=== PATIENT | female | born 1970 | race Caucasian/White ===

== ENCOUNTER 2017-01-14 06:18 | Observation (INO) | payer OTHER ==
--- NOTE | 2017-01-12 12:42 | Anesthesia Consultation ---
Anesthesia Consult and Med Hx Date of service: 01/12/17 - Airway Anesthetic Teeth Evaluation: Good ROM Head & Neck: Adequate Mental/Hyoid Distance: Inadequate Mallampati Class: Class II Intubation Access Assessment: Probably Good - Pulmonary Exam CTA: Yes (clear blbs) - Cardiac Exam Cardiac Exam: RRR - Pre-Operative Health Status ASA Pre-Surgery Classification: ASA2 Proposed Anesthetic Plan: General - Cardiovascular System Hx Hypertension: Yes - Central Nervous System Hx Neuromuscular Disorder: Yes (OA)
[2017-01-12 12:44] LABS: Basophils % (Auto) 1.1 % (0.0-1.8); Hemoglobin 12.1 gm/dl (10.1-14.3); Mean Corpuscular HGB Conc 33 % (30-34); Mean Corpuscular Hemoglobin 29 pg (28-32); Mean Corpuscular Volume 87 fl (79-97); Platelet Count 316 K/mm3 (140-440); Red Blood Count 4.25 M/mm3 (3.65-5.03); Red Cell Distribution Width 13.8 % (13.2-15.2); White Blood Count 5.8 K/mm3 (4.5-11.0)
[2017-01-12 12:57] LABS: Anion Gap 15 mmol/L; BUN/Creatinine Ratio 26.66; Blood Urea Nitrogen 16 mg/dL (7-17); Calcium 9.4 mg/dL (8.4-10.2); Carbon Dioxide 28 mmol/L (22-30); Chloride 101.6 mmol/L (98-107); Glucose 108 mg/dL (65-100); Potassium 3.6 mmol/L (3.6-5.0); Sodium 141 mmol/L (137-145)
--- NOTE | 2017-01-13 09:19 | Admit Criteria Form ---
Admission Criteria Documentation: AMBULATORY SURGERY EXCEPTION CRITERIA Ambulatory Surgery Exception Criteria ( Place 'X' for any and all applicable criteria): Surgery or procedure performed on ambulatory basis may require inpatient stay for[A] ANY ONE of the following(1)(2)(3)(4)(5)(6)(7)(8)(9): [X] I. A preoperative situation, condition, or finding that warrants inpatient stay as indicated by ANY ONE of the following: [] a) Inpatient care needed because of severity of a disease or condition rather than the surgery (eg, severe cardiac or respiratory disease, severe infection) (15) (16 ) (17) (18) [] b) Emergent procedure (eg, angioplasty for acute ischemia)(19) [X] c) Complex surgical approach or situation as indicated by ANY ONE of the following(3): [] i) Open approach needed instead of usual endoscopic, transcatheter, or other less invasive procedure [] ii) Difficult approach because of previous operation [] iii) Airway monitoring required after open neck procedures(20)(21) [X] iv) Large mass requiring unusually extensive dissection [] v) Additional complicating feature requiring inpatient care (eg, drain management)(22(23): [] d) Major surgery in a pt with high anesthetic risk as indicated by ANY ONE of the following (2)(3)(5)(7)(8): [] i) ASA risk class III or higher (severe systemic disease impairing function) [D] [] ii) Advanced age (eg, older than 85 years)(14)(24) [] iii) Symptomatic heart failure(25) [] iv) Symptomatic asthma or COPD(8)(21) [] v) Morbid obesity with hemodynamic or respiratory problems(20)( 21)(26)(27) [] vi) Obstructive sleep apnea(20)(21) [] vii) Former premature infants who are younger than 60 weeks [] viii) High risk for severe postoperative abnormalities (eg, severe postoperative hypocalcemia after parathyroidectomy for severe hyperparathyroidism)(27)( 28) [] ix) Unstable angina(25) [] e) Drug-related risk requiring inpatient stay as indicated by ANY ONE of the following(5)(10)(14)(32)(33) [] i) Procedure requires discontinuing drugs or other therapy (eg , antiarrhythmic medication, antiseizure medication), which necessitates inpatient observation or treatment.(18)(31) [] ii) Major surgery and high risk drug use as indicated by ANY ONE of the following: [] 1) Active abuse of cocaine or similar drug [] 2) Monoamine oxidase inhibitor use [] 3) Other drug identified as posing risk [] f) Inadequate outpatient care situation as indicated by ANY ONE of the following(5)(10)(14)(32)(33) [] i) Patient lives remote from medical facility and procedure has urgent complication potential, and temporary nearby residence cannot be arranged [] ii) Patient will have postprocedure incapacitation and inadequate assistance at home, or alternative level of care cannot be arranged. [] iii) Patient will have long general anesthesia or procedure side effect resolution time, and competent person to stay with patient on first postoperative night at home or alternative level of care cannot be arranged. []iv) Other inadequate outpatient situation that cannot be handled by other means [] II. A perioperative event, condition, or finding that warrants inpatient stay as indicated by ANY ONE of the following (1)(2)(3): [] a) Inadequate physiologic recovery: cardiovascular, respiratory, or hemodynamic status not normal or near preoperative baseline(18) [] b) Hemodynamic instability [] c) Patient not alert with near normal or baseline mental status [] d) Temperature not normal or as expected and not appropriate for outpatient treatment of condition [] e) Ambulatory or appropriate activity level status not yet achieved post procedure [E](34)(35)(36) [] f) Operative site not appropriate (eg, unexpected or excessive drainage or bleeding) [] g) Postoperative effects not resolved or adequately managed (eg, significant pain or vomiting not appropriate for outpatient or next level of care)(10)(12) [] h) Complicating features requiring inpatient care as indicated by ANY ONE of the following(37): [] i) Severe complications of procedure (eg, bowel injury, airway compromise, vascular injury,severe hemorrhage) [] ii) Extensive (eg, dissection far beyond usual scope of procedure ) or prolonged (eg, 120 minutes beyond usual) surgery needed requiring inpatient postoperative care [] iii) Conversion to an open or complex procedure that requires inpatient care (eg, open vs laparoscopic cholecystectomy, abdominal vs vaginal hysterectomy)(38) [] iv) Comorbid condition or test result identified during or post procedure that requires inpatient care (7) [] v) Malignant hyperthermia(30) [] vi) Other complicating feature requiring inpatient care(22)(23) Inpatient stay may be needed until ALL of the following are present (1)(2)(3)(4) (5)(6)(10)(14)(33)(40): []a) Physiologic recovery: cardiovascular, respiratory, and hemodynamic status normal or near preoperative baseline []b) Hemodynamic stability []c) Patient alert, with near normal or baseline mental status []d) Temperature appropriate: patient afebrile or temperature appropriate for outpt treatment of condition []e) Activity level appropriate: ambulatory or appropriate activity level post procedure []f) Operative site appropriate as indicated by ALL of the following: []i) Site dry or with expected drainage []ii) Any blood noted is as expected for procedure. []g) Postoperative effects resolved or managed as indicated by ALL of the following: []i) Pain management appropriate for outpatient (or next level of) care(10) []ii) Minimal nausea and vomiting: if present, successfully treated with oral medication(12) []iii) Headache, dizziness, or drowsiness (if present) are mild. []h) Voiding status acceptable as indicated by ANY ONE of the following: []i) Voiding spontaneously []ii) No voiding but instructions given for follow-up in 6 to 8 hours []iii) Urinary catheter in place, and instructions given for follow-up []i) Complicating features requiring inpatient care manageable at a lower level of care(37) []j) Comorbid conditions manageable at a lower level of care(37) The original [employer] content created by [employer] has been revised. The portions of the content which have been revised are identified through the use of italic text or in bold, and [facility] [employer] has neither reviewed nor approved the modified material. All other unmodified content is copyright [employer]. Please see references footnoted in the original [employer] edition 2016 Admission Criteria Met: Yes
[~2017-01-14 06:18] MED LIST: DILAUDID IV PRN; DIPRIVAN 10 MG/ML IV ONE; NACL 0.9% 1000 ML 1,000 ML IV SCH; NEURONTIN PO NR; PEPCID PO NR; SUBLIMAZE IV NR; SUBLIMAZE IV PRN; TRANSDERM-SCOP TD NR; VERSED IV NR; ZOFRAN IV PRN
[2017-01-14] MEDS ORDERED: NACL BACTERIOSTATIC INFILTRATI ONE (06:35)
[2017-01-14] MEDS ORDERED: ZEMURON IV ONE (07:21)
[2017-01-14] MEDS ORDERED: XYLOCAINE MPF 2% ONE (07:21)
[2017-01-14] MEDS ORDERED: DIPRIVAN 10 MG/ML IV ONE (07:24)
[2017-01-14] MEDS ORDERED: DILAUDID ONE (07:25)
[2017-01-14] MEDS ORDERED: MARCAINE-EPI 0.5%-1:200,000 INFILTRATI ONE (07:27)
[2017-01-14] MEDS ORDERED: DECADRON ONE (07:28)
[2017-01-14] MEDS ORDERED: CLONIDINE 1,000 MCG/10 ML VIAL EP ONE (07:28)
--- NOTE | 2017-01-14 07:35 | History and Physical Report ---
History of Present Illness Date of examination: 01/14/17 Date of admission: 01/14/2017 Chief complaint: dysfunctional uterine bleeding and pain History of present illness: 46y/o with dysfunctional uterine bleeding and symptomatic uterine fibroids. The patient had a pelvic ultrasound that demonstrated evidence of multiple myomas and a 12 week size enlarged uterus. She has reported worsening of her vaginal bleeding and pelvic pain during her menses. The patient has attempted medical management without success. She has elected to undergo definitive surgical management. Past History Past Medical History: hypertension, other (uterine fibroid) Past Surgical History: other (arthroscopic knee surgery; bilateral tubal ligation) Social history: - Obstetrical History : 5 Para: 3 Medications and Allergies Allergies Allergy/AdvReac Type Severity Reaction Status Date / Time No Known Allergies Allergy Verified 01/12/17 12:18 Home Medications Medication Instructions Recorded Confirmed Last Taken Type Hydrochlorothiazide 25 mg PO DAILY 01/15/14 01/14/17 01/13/17 History Iron Fum,Ps/FA/Vit B with C #9 1 each PO DAILY 01/15/14 01/14/17 01/12/17 History [Integra Plus Capsule] Lisinopril [Lisinopril] 20 mg PO DAILY 01/12/17 01/14/17 01/13/17 History Simvastatin [Simvastatin] 40 mg PO DAILY 01/12/17 01/14/17 01/13/17 History Active Meds: Active Medications Celecoxib (Celebrex) 200 mg PO PREOP NR Stop: 01/14/17 23:59 Last Admin: 01/14/17 06:24 Dose: 200 mg Famotidine (Pepcid) 20 mg PO PREOP NR Stop: 01/14/17 23:59 Last Admin: 01/14/17 06:24 Dose: 20 mg Fentanyl (Sublimaze) 100 mcg IV ONCE NR Stop: 01/14/17 23:29 Last Admin: 01/14/17 07:29 Dose: 100 mcg Gabapentin (Neurontin) 600 mg PO PREOP NR Stop: 01/14/17 23:59 Last Admin: 01/14/17 06:24 Dose: 600 mg Sodium Chloride (Nacl 0.9% 1000 Ml) 1,000 mls @ 100 mls/hr IV DIRECT KOFI Last Admin: 01/14/17 06:50 Dose: 100 mls/hr Midazolam HCl (Versed) 2 mg IV PREOP NR Stop: 01/14/17 23:59 Last Admin: 01/14/17 07:29 Dose: 2 mg Review of Systems All systems: negative Constitutional: fatigue Genitourinary: vaginal bleeding, pelvic pain - Vital Signs Vital signs: Vital Signs Temp Pulse Resp BP 97.7 F 72 14 128/78 01/12/17 12:05 01/12/17 12:05 01/12/17 12:05 01/12/17 12:05 Temp Pulse Resp BP Pulse Ox 99.7 F H 67 16 137/86 98 01/14/17 07:12 01/14/17 07:12 01/14/17 07:12 01/14/17 07:12 01/14/17 07:12 - Physical Exam Breasts: Positive: deferred Cardiovascular: Regular rate Lungs: Positive: Clear to auscultation Abdomen: Positive: normal appearance, soft Uterus: Positive: enlarged Results Result Diagrams: 01/12/17 12:15 01/12/17 12:15 All other labs normal. Assessment and Plan - Patient Problems (1) Leiomyoma Current Visit: Yes Status: Acute Plan to address problem: Scheduled for robotic hysterectomy and bilateral salpingo-oophorectomy (2) Dysfunctional or functional uterine hemorrhage Current Visit: Yes Status: Acute (3) Pelvic pain Current Visit: Yes Status: Acute
--- NOTE | 2017-01-14 07:41 | Anesthesia Day of Surgery ---
Anesthesia Day of Surgery - Day of Surgery Patient Examined: Yes Patient H&P Reviewed: Yes Patient is NPO: Yes
[2017-01-14] MEDS ORDERED: NEOSPORIN GU IR ONE ×2 (07:42→09:45)
[2017-01-14] MEDS ORDERED: ANCEF/STERILE WATER 2 GM/20 ML 2 GM/20 ML SYRINGE IV SCH (08:00)
[2017-01-14] MEDS ORDERED: NACL 0.9% 1000 ML 1,000 ML ONE (08:14)
[2017-01-14] MEDS ORDERED: ePHEDrine SULFATE ONE (08:49)
[2017-01-14] MEDS ORDERED: ZOFRAN IV PRN ×2 (09:00→09:32)
[2017-01-14] MEDS ORDERED: DILAUDID IV PRN (09:00)
[2017-01-14] MEDS ORDERED: ROBINUL ONE (09:10)
[2017-01-14] MEDS ORDERED: ZOFRAN ONE (09:11)
[2017-01-14] MEDS ORDERED: NEOSTIGMINE ONE (09:11)
--- NOTE | 2017-01-14 09:31 | Operative Report ---
Operative Report Operative Report: Date of surgery: 01/14/2017 Preoperative diagnoses: Symptomatic uterine fibroids; dysfunctional uterine bleeding; dysmenorrhea Postoperative diagnoses: Same as above Procedure: Robotic hysterectomy; bilateral salpingo-oophorectomy Surgeon: Merry Schwarz M.D. Manager Security: Tammy Singer Anesthesia: Gen. endotracheal anesthesia Estimated blood loss: 100 mL Pathology: Uterus, cervix, tubes and ovaries Indication: 36-year-old with a history of symptomatic uterine fibroids. The patient elected to undergo definitive surgical management. Procedure: The patient was taken to the operating room and given general endotracheal anesthesia without complication. She is prepped and draped in a normal sterile fashion. A bivalve speculum was placed in the patient's vagina and a single- tooth tenaculum placed on the anterior lip of the cervix. The uterus was sounded with the uterine sound. A EasyQasa uterine manipulator was placed in the bivalve speculum was then removed. Attention was then turned to the patient's abdomen where a millimeter supra umbilical skin incision was then made. A Veress needle was placed and peritoneal entry was verified water-filled syringe. Insufflation of the peritoneal cavity was performed with CO2 gas. The 12 mm trocar was then placed under direct visualization. An additional 8 mm trocar was placed on the patient's left and right lateral side just opposite of the supraumbilical trocar. An additional 5 mm right lateral trocar was then placed as the accessory port. The patient was then placed in steep Trendelenburg. The da Ihsan robot was then engaged. A fenestrated forcep was placed in arm 2 and a vessel sealer was placed in arm 1. The surgeon then transferred to the surgical console. The infundibulopelvic ligament was then isolated on the right. The vessel sealer was used to coagulate the infundibulopelvic ligament which was then transected. The tube and ovary were transected from its blood supply. The round ligament was then coagulated and transected also. The vesicouterine peritoneum was then entered from the patient 's right side. The uterine vessels were then coagulated with the vessel sealer. The vessels were then transected . Attention was then turned to the patient's left side where the infundibulopelvic ligament and mesosalpinx were again isolated coagulated and transected. The vesical peritoneum was then entered from the left and joined in the midline. Peritoneum was reflected off of the lower uterine segment. Uterine vessels were then coagulated and then transected. The blood supply to the uterus was adequately contained, a posterior colpotomy was made. The V care ring was visualized. Posterior colpotomy was created with the monopolar scissors. The incision was continued circumferentially until anterior colpotomy was made. The cervix and uterus were amputated from the vaginal cuff. The uterus was then removed along with the tubes and ovaries bilaterally through the vagina and a warm laparotomy sponge was placed and maintain the pneumoperitoneum. The vaginal cuff was then closed in a running fashion with V lock suture. Irrigation of the pelvis was performed. Tisseel was applied to the incision. The supraumbilical 12 mm trocar site was closed with the Elvis Workman device. The skin was then reapproximated with 4-0 Monocryl. The tissue was sent to pathology which included the cervix and uterus. The patient was then successfully extubated. She was then taken to the recovery room in stable condition. All sponge laps and needle counts were correct x2.
[2017-01-14] MEDS ORDERED: NARCAN 0.4 MG/1 ML IV PRN (09:32)
[2017-01-14] MEDS ORDERED: PERCOCET 5/325 PO PRN (09:32)
[2017-01-14] MEDS ORDERED: MOTRIN PO PRN (09:32)
[2017-01-14] MEDS ORDERED: NACL 0.9% IR ONE ×2 (09:44)
[2017-01-14] MEDS ORDERED: MILK OF MAGNESIA PO PRN (10:30)
[2017-01-14] MEDS ORDERED: MORPHINE PCA 30MG/30ML IV SCH (10:30)
[2017-01-14] MEDS ORDERED: TYLENOL PO PRN (10:30)
--- NOTE | 2017-01-14 11:43 | Post Anesthesia Evaluation ---
- Post Anesthesia Evaluation Patient Participated: Yes Airway Patent: Yes Stable Respiratory Function: Yes Nausea/Vomiting: No Temp > 96.8F: Yes Pain Manageable: Yes Adequeate Hydration: Yes Anesthesia Complications: No Block Receding Appropriately: Not Applicable Patient on Ventilator: No
[2017-01-14] MEDS: TORADOL IV SCH ×2 (14:08→21:24)
[2017-01-14] MEDS: D5LR 1,000 ML IV SCH ×2 (14:09→22:15)
[2017-01-15] MEDS: D5LR 1,000 ML IV SCH (05:08)
[2017-01-15 07:00] LABS: Hematocrit 31.6 % (30.3-42.9); Hemoglobin 10.3 gm/dl (10.1-14.3)
--- NOTE | 2017-01-15 08:49 | Progress Note ---
Assessment and Plan - Patient Problems (1) Leiomyoma Current Visit: Yes Status: Acute Plan to address problem: Patient doing well Discharge home once able to void adequately (2) Dysfunctional or functional uterine hemorrhage Current Visit: Yes Status: Acute (3) Pelvic pain Current Visit: Yes Status: Acute Subjective - Subjective Date of service: 01/15/17 Interval history: Patient without any significant complaints. She is tolerating clear diet without difficulty. The surgery was discussed with the patient. Patient reports: appetite normal, pain well controlled Objective - Vital Signs Latest vital signs: Vital Signs Temp Pulse Pulse Resp BP BP Pulse Ox 01/15/17 06:17 18 01/15/17 04:25 98.6 F 62 18 102/56 01/15/17 01:59 18 01/15/17 00:00 98.0 F 69 18 104/63 01/14/17 22:00 18 01/14/17 21:24 18 01/14/17 20:00 98.1 F 64 18 108/66 01/14/17 18:03 18 01/14/17 15:58 98.1 F 76 18 96/56 01/14/17 11:00 98.5 F 71 18 104/58 01/14/17 10:45 98.9 F 67 17 102/65 96 01/14/17 10:30 69 16 105/65 100 01/14/17 10:15 73 17 100/58 100 01/14/17 10:02 67 18 103/63 100 01/14/17 09:57 74 16 100/64 99 01/14/17 09:52 97.2 F L 86 20 96/61 95 Intake and Output 01/14/17 01/15/17 01/15/17 22:59 06:59 14:59 Intake Total 1480 1240 Output Total 350 2100 Balance 1130 -860 Intake: IV 1000 1000 D5lr 1,000 ml @ 125 mls/ 1000 1000 hr IV DIRECT KOFI Rx#: [id number] Oral 240 240 Intake, Free Water 240 Output: Urine 350 2100 Indwelling Catheter 350 2100 Other: Total, Intake Amount 240 240 Total, Output Amount 350 1200 Voiding Method Indwelling Catheter - Exam Abdomen: Present: normal appearance, soft
--- NOTE | 2017-01-15 08:50 | Discharge Summary ---
Providers - Providers Date of Admission: 01/14/17 09:32 Date of discharge: 01/15/17 Attending physician: FARRAH CARDONA Primary care physician: AUGUSTO CLEMONS Hospitalization Reason for admission: other (uterine fibroid; dysfunctional uterine bleeding) Procedure: other (robotic hysterectomy and bilateral salpingo-oophorectomy) Incision: normal, dry Discharge diagnosis: other (dysfunctional uterine bleeding; uterine fibroids) Hospital course: The patient was admitted the day surgery underwent a robotic hysterectomy and bilateral salpingo-oophorectomy. Please see operative note for details of surgery. Postoperative course was uneventful. Condition at discharge: Good Disposition: DISCHARGED TO HOME OR SELFCARE - Discharge Diagnoses (1) Leiomyoma Status: Acute (2) Dysfunctional or functional uterine hemorrhage Status: Acute (3) Pelvic pain Status: Acute Plan - Discharge Medications Prescriptions: Docusate Sodium [Colace] 100 mg PO BID PRN #60 capsule PRN Reason: Constipation Ibuprofen [Motrin] 800 mg PO Q8HR PRN #60 tablet PRN Reason: Pain Oxycodone HCl/Acetaminophen [Percocet 7.5/325 mg] 1 each PO Q6HR PRN #45 tablet PRN Reason: Pain - Provider Discharge Summary Activity: no sex for 6 weeks, no heavy lifting 4 weeks, no strenuous exercise Diet: routine Instructions: routine Additional instructions: [] Smoking cessation referral if applicable(refer to patient education folder for contact #) [] Refer to [facility] Booklet Call your doctor immediately for: * Fever > 100.5 * Heavy vaginal bleeding ( >1 pad per hour) * Severe persistent headache * Shortness of breath * Reddened, hot, painful area to leg or breast * Drainage or odor from incision. * Keep incision clean and dry at all times and follow doctor's instructions regarding bathing/showering Scheduled follow-up with Dr. Cardona in 4 weeks - Follow up plan
--- NOTE | 2017-01-15 09:01 | Progress Note ---
Subjective Date of service: 01/15/17 Interval history: 1st POD after total robotic hysterectomy Patient is in the bed, comfortable. Pain is well controlled with pain meds. Ambulated well. No nausea or vomiting. No anesthesia complication Objective - Constitutional Vitals: Vital Signs - 12hr 01/14/17 01/14/17 01/15/17 21:24 22:00 00:00 Temperature 98.0 F Pulse Rate [ 69 Right] Respiratory 18 18 18 Rate Blood Pressure 104/63 [Right Arm] 01/15/17 01/15/17 01/15/17 01:59 04:25 06:17 Temperature 98.6 F Pulse Rate [ 62 Right] Respiratory 18 18 18 Rate Blood Pressure 102/56 [Right Arm] - Labs CBC & Chem 7: 01/15/17 06:03 01/12/17 12:15
[2017-01-15 13:45] VITALS: BP 112/73
== END 2017-01-15 13:30 | disposition home or self-care (01) ==
LOC: OR 06:18 → OB 09:32
PROVIDERS: ADMIT Obstetrics & Gynecology; ATTEND Obstetrics & Gynecology
DX: N93.8 Other specified abnormal uterine and vaginal bleeding (principal); D21.9 Benign neoplasm of connective and other soft tissue, unspecified; R10.2 Pelvic and perineal pain; I10 Essential (primary) hypertension
CPT/HCPCS: 36415; 58571; 64450; 80048; 84703; 85014; 85018; 85025; 86850; 86900; 86901; 88307; 96374; 96376; A4217; C9250; G0378; J0690; J0735; J1100; J1170; J1885; J2250; J2270; J2405; J2704; J2710; J3010; J7030; J7121; S2900